=== PATIENT | female | born 1955 | race Caucasian/White ===

== ENCOUNTER 2018-07-09 16:48 | Emergency (ER) | payer OTHER, SELFPAY ==
[2018-07-09 17:18] VITALS: BP 156/82; PULSE 91; RESP 20; TEMP 36.6; O2SAT 100; BMI 26.6
--- NOTE | 2018-07-09 19:18 | ED.WOUNDLAC ---
HPI - Wound/Laceration General Chief Complaint: Wound/Laceration Stated Complaint: swelling, [employer] problem Time Seen by Provider: 07/09/18 19:18 Source: patient Mode of arrival: ambulatory Limitations: no limitations History of Present Illness HPI narrative: Patient is a 62-year-old female here for evaluation of a swelling in her rectal area for the past couple days. She states that it is extremely painful. States that it has caused her problems going to the bathroom. She has tried to look at it on her own but has been unable to. No blood in the stool. No urinary symptoms. No vaginal bleeding. She states she has had internal hemorrhoid in the past when she was that was 30 years ago. Has tried [id number] preparation H for the symptoms prior to arrival. Related Data Previous Rx's Medication Instructions Recorded lidocaine 1 applictn TOP TID PRN #45 gram 07/09/18 pramoxine [Proctofoam] 1 applictn NM TID #15 gram 07/09/18 Allergies Allergy/AdvReac Type Severity Reaction Status Date / Time cefuroxime [From Ceftin] Allergy Verified 07/09/18 17:21 clindamycin Allergy Verified 07/09/18 17:21 aspirin AdvReac Verified 07/09/18 17:23 cyclobenzaprine AdvReac Verified 07/09/18 17:22 [From Flexeril] pregabalin [From Lyrica] AdvReac Verified 07/09/18 17:22 Review of Systems Constitutional Denies fever(s) and Denies headache(s) ENT Ears, Nose, Mouth, and Throat: Denies vertigo, Denies dizziness and Denies headache(s) Cardiovascular Denies chest pain and Denies dyspnea Respiratory Denies dyspnea Gastrointestinal Gastrointestinal: Denies abdominal pain and Reports constipation Comments: Pain and swelling around her anus Genitourinary Denies dysuria Musculoskeletal Denies myalgias and Denies arthralgias Integumentary/Breasts Denies rash Neurologic Denies vertigo, Denies dizziness and Denies headache(s) Hematologic/Lymphatic Denies easy bleeding and Denies easy bruising Allergic/Immunologic Denies urticaria [facility] Medical History Healthy adult (Acute) Social History Smoking Status: Never smoker Social History Smoking Status: Never smoker Exam Initial Vital Signs Initial Vital Signs: Vital Signs Temperature 97.8 F 07/09/18 17:18 Pulse Rate 91 H 07/09/18 17:18 Respiratory Rate 20 07/09/18 17:18 Blood Pressure 156/82 H 07/09/18 17:18 Pulse Oximetry 100 07/09/18 17:18 Const General: cooperative, well developed, well groomed and No acute distress Orientation: alert, awake and oriented x3 HENMT Head: normal to inspection and normocephalic Resp Effort & Inspection: normal respiratory effort Auscultation: clear to auscultation bilaterally Cardio Rate: regular rate Rhythm: regular rhythm GI Inspection: non-distended Palpation: soft and No firm Rectal Exam: hemorrhoids and tenderness Skin Lesions: no lesions Rashes: no rashes Neuro General: alert, awake and oriented x3 Cognition: normal cognition Speech: speech normal Extrem General: normal to inspection and capillary refill normal Psych Appearance: grossly normal and well kempt Course Orders Ordered: Discontinued Medications Lidocaine HCl (Xylocaine Jelly 2%) 1 applic TOP NOW ONE Stop: 07/09/18 19:37 Vital Signs - 8 hr 07/09/18 19:47 Pulse Rate 90 Respiratory Rate 16 Blood Pressure [Left Arm] 142/86 H Pulse Oximetry 98 MDM - Wound/Laceration MDM Narrative Medical decision making narrative: Patient has a thrombosed external hemorrhoid that is easily seen on exam. We did discuss treatment. Will send home with lidocaine jelly and Proctofoam. She has Colace at home. She was given the phone number for [facility] for follow-up. She was given return precautions. She expressed understanding and agreement with plan. Discharge Plan Departure Patient Disposition: Home Clinical Impression: Hemorrhoids Qualifiers: Hemorrhoid type: unspecified Qualified Code(s): K64.9 - Unspecified hemorrhoids Discharge Date/Time: 07/09/18 19:51 Interventions: ED Discharge Assessment Last Done: 07/09/18 19:52 Instructions: Hemorrhoids (Alternative Therapy), DI for Hemorrhoids Activity Restrictions/Additional Instructions: Recommend that you use the topical treatments like we discussed. Recommend that you take the stool softener also likely discussed. Contact the [facility] at [phone]. There can be bleeding associated with this. Return to the emergency department for any new or worsening symptoms Prescriptions: New lidocaine 5 % cream 1 applictn TOP TID PRN (Reason: pain) Qty: 45 RF: 0 pramoxine [Proctofoam] 1 % foam 1 applictn NM TID Qty: 15 RF: 0
[2018-07-09 19:47] VITALS: BP 142/86; PULSE 90; RESP 16; O2SAT 98
== END 2018-07-09 19:51 | disposition home or self-care (01) ==
PROVIDERS: Emergency Provider Emergency Medicine
DX: K64.9 Unspecified hemorrhoids (principal)
CPT/HCPCS: 99282; 99283

== ENCOUNTER 2018-11-06 09:29 | Day surgery (SDC) | payer OTHER, SELFPAY ==
[2018-11-06] VITALS (7 sets, daily range): BP systolic 108–129; BP diastolic 64–77; PULSE 65–81; RESP 10–16; TEMP 36.2–37; O2SAT 99–100; BMI 26.3
[2018-11-06] MEDS: SODIUM CHLORIDE 0.9% 1,000 ML 200 ML IV (10:00)
--- NOTE | 2018-11-06 10:18 | PM.PREOP ---
Pre-operative Note Interval Note History & Physical reviewed/Exam performed by Physician: Yes Changes to H&P: No H&P completed within 30 days and has changed as indicated here:: See office note from 10/08/2018 ASA Class (for procedural sedation): II
[2018-11-06] MEDS: fentaNYL 250 MCG/5 ML INJ IV ×2 (10:52→11:01)
[2018-11-06] MEDS: MIDAZOLAM 5 MG/5 ML VIAL IV ×2 (10:53→11:03)
--- NOTE | 2018-11-06 11:22 | PM.OP.ENDO ---
Operative Date/Time/Diagnoses Date of procedure: 11/06/18 Time of procedure: 11:22 Pre-op diagnosis: Rectal bleeding. History of thrombosed hemorrhoids. Post-op diagnosis: same (Internal hemorrhoids) Procedure & Clinicians Study performed: Colonoscopy Same procedure as scheduled: Yes Indications: Rectal bleeding Surgeon: Tan Carrizales Procedure Notes SCOAP/Timeout: Performed Procedure in detail: The patient was placed in the left lateral decubitus position and underwent IV sedation directed by the surgeon consisting of fentanyl and Versed. Digital exam was unremarkable except for some minor swelling near the anus. The scope was inserted and advanced through the rectum into the sigmoid, descending, transverse, and ascending colon. I noted diverticulosis in the sigmoid colon Stiffener was inserted and pressure applied and we made our way into the cecum.. The cecum was reached identified by the ileocecal valve and the appendiceal opening. The ileocecal valve was successfully cannulated. The terminal ileum was normal in appearance. The scope was gradually brought out. No Polyps were found. The scope ultimately was retroflexed in the rectum. The appearance was remarkable for rather large internal hemorrhoids without ulceration.. The scope was removed and the patient tolerated the procedure well. Prep was very good. Findings: diverticulosis (Sigmoid) Specimen(s): none sent Complications: none Recommendations: Colonscopy in 10 years Follow up: as needed Disposition: PACU
--- NOTE | 2018-11-06 12:26 | DI.RAD.S_ITS ---
PROCEDURE: XR ACUTE ABDOMEN SERIES INDICATIONS: pain post colonoscopy TECHNIQUE: One view chest and two views of the abdomen were acquired. COMPARISON: None. FINDINGS: Surgical changes and devices: None. Chest: Lungs are clear. Heart size is normal. No pleural effusions. No pneumoperitoneum. Abdomen: Bowel gas pattern is normal. No suspicious calcifications. Visualized solid organ contours appear normal. Bones: No suspicious bony lesions. IMPRESSION: No gross free air. No acute cardio pulmonary pathology. Dictated by: Torsten Ferguson M.D. on 11/06/2018 at 13:26 Approved by: Torsten Ferguson M.D. on 11/06/2018 at 13:27
--- NOTE | 2018-11-06 12:56 | SUR.PHASEII ---
Pt lying on lt side. Reported having dyspnea, o2 sat 99% ra. Exp rhonchi to rt upper lobe, otherwise lungs clear. O2 monitor in place. Call light within reach.
--- NOTE | 2018-11-06 14:13 | SUR.PHASEII ---
Late entry: Assumed care from Eliseo. Pt c/o of L sided abdominal pain. Pt has soft belly with + bowel tones, no nausea. Pt assisted to L side and instructed her expel gas if needed. was brought in and d/c instructions discussed. All voiced an understanding. Pt did not get any better and still said the pain was there and it got worse as she took a deep breath. Dr. Carrizales called, xray ordered, xray performed read by Dr. Carrizales. Pt was given food from 's instructions and able to leave after that. Pt also admitted to passing some gas by mouth. Pt left when ready and left in stable condition.
== END 2018-11-06 13:00 | disposition home or self-care (01) ==
LOC: ENDO 09:31
PROVIDERS: PCP Internal Medicine; Visit Provider Specialist
PROC: 0DJD8ZZ Inspection of Lower Intestinal Tract, Via Natural or Artificial Opening Endoscopic (ICD-10-PCS; CPT 45378; principal; 2018-11-06 10:45)
DX: K62.5 Hemorrhage of anus and rectum (principal); K64.8 Other hemorrhoids; K57.30 Diverticulosis of large intestine without perforation or abscess without bleeding
CPT/HCPCS: 45378; 74022; J2250; J3010

== ENCOUNTER 2018-11-09 16:18 | Emergency (ER) | payer OTHER, SELFPAY ==
[2018-11-09 16:25] VITALS: BP 148/86; PULSE 87; RESP 15; TEMP 36.4; O2SAT 100; BMI 25.8
--- NOTE | 2018-11-09 16:36 | ED.ABDPAIN ---
HPI - Abdominal Pain General Chief Complaint: Abdominal Pain Stated Complaint: pain lower left abdomen Time Seen by Provider: 11/09/18 16:30 Source: patient Mode of arrival: ambulatory Limitations: no limitations History of Present Illness HPI narrative: Patient is a 62-year-old female who presents with left lower quadrant pain. She had a colonoscopy for hemorrhoids on 11/06/2018. She did immediately after the procedure she had this left lower quadrant pain. She says it has not moved has not gone away in fact her pain has progressively worsened. She had a postprocedure x-ray which she said was negative. She has not been able to get comfortable she denies any fever no nausea or vomiting. MD complaint: abdominal pain Pain Consistency: constant Radiation: LLQ Migration to: no migration Relieving factors: nothing Exacerbating factors: nothing Related Data Home Medications Medication Instructions Recorded Confirmed bupropion HCl XL 150 mg 24 hr 150 mg PO QAM 10/08/18 11/09/18 tablet, extended release epinephrine 0.3 mg/0.3 mL 0.3 ml IM ONCE PRN 10/08/18 11/09/18 injection, auto-injector estradiol 2 mg tablet 2 mg PO DAILY 10/08/18 11/09/18 fluorometholone 0.1 % eye See Rx Instructions .ROUTE 10/08/18 11/09/18 drops,suspension .COMPLEX ml fluticasone propionate-salmeterol 2 puff INHALATION BID 10/08/18 11/09/18 230 mcg-21 mcg/actuation HFA inhaler pravastatin 20 mg tablet 20 mg PO DAILY 10/08/18 11/09/18 zafirlukast 20 mg tablet 20 mg PO Q12H 10/08/18 11/09/18 albuterol sulfate [ProAir HFA] 1 puff INHALATION DAILY 11/09/18 11/09/18 buspirone 10 mg PO QPM 11/09/18 11/09/18 buspirone 20 mg PO QAM 11/09/18 11/09/18 carboxymethylcellulose sodium 1 drp OPHTHALMIC (EYE) PRN PRN 11/09/18 11/09/18 [Refresh Tears] clobetasol 1 applic TOPICAL BID 11/09/18 11/09/18 cyclosporine [Restasis] 1 drp OPHTHALMIC (EYE) DIRECTED 11/09/18 11/09/18 levothyroxine [Synthroid] 150 mcg PO DAILY 11/09/18 11/09/18 ondansetron 8 mg PO PRN PRN 11/09/18 11/09/18 rizatriptan [Maxalt] 10 mg PO PRN PRN 11/09/18 11/09/18 sertraline 50 mg PO DAILY 11/09/18 11/09/18 sertraline 100 mg PO DAILY 11/09/18 11/09/18 tizanidine 4 mg PO QPM 11/09/18 11/09/18 tramadol 50 mg PO DAILY PRN 11/09/18 11/09/18 trazodone 100 mg PO QPM 11/09/18 11/09/18 Previous Rx's Medication Instructions Recorded ciprofloxacin HCl [Cipro] 500 mg PO BID #14 tab 11/09/18 fluconazole 200 mg PO DAILY #1 tab 11/09/18 hydrocodone-acetaminophen [[place]] 1 tab PO Q6H PRN #10 tab 11/09/18 metronidazole [Flagyl] 500 mg PO TID #21 tab 11/09/18 Allergies Allergy/AdvReac Type Severity Reaction Status Date / Time fluoxetine [From Prozac] Allergy Unknown Verified 11/06/18 10:01 topiramate [From Topamax] Allergy Unknown Verified 11/06/18 10:01 cefuroxime [From Ceftin] Allergy Verified 11/06/18 10:01 clindamycin Allergy Verified 11/06/18 10:01 aspirin AdvReac Verified 11/06/18 10:01 cyclobenzaprine AdvReac Verified 11/06/18 10:01 [From Flexeril] pregabalin [From Lyrica] AdvReac Verified 11/06/18 10:01 Review of Systems Review of Systems GENERAL: Denies chills, fatigue, malaise, fever, sweats, travel HEENT: Denies sinus pain, ear pain, sore throat, difficulty swallowing, neck pain RESPIRATORY: Denies dyspnea, cough, wheezing, hemoptysis, sputum. CARDIOVASCULAR: Denies chest pain, palpitations, orthopnea, edema GASTROINTESTINAL: See HPI : Denies dysuria, frequency, incontinence, hematuria, urinary retention, flank pain. MUSCULOSKELETAL: Denies weakness, joint pain, or bony pain SKIN: No rash, no erythema, no pruritus NEUROLOGIC: Denies weakness, dizziness, headache, numbness, change in speech, confusion PSYCHIATRIC: No concerning psychosocial issues. 12 point review of systems is negative except for those stated above and HPI [facility] Medical History Healthy adult (Acute) Anxiety (Chronic) Asthma (Chronic) Chronic migraine (Chronic) Depression (Chronic) Fibromyalgia (Chronic) Hypothyroidism (Chronic) Surgical History Status post hysterectomy (Resolved) Social History household members: spouse Smoking Status: Never smoker Social History household members: spouse Smoking Status: Never smoker Exam Initial Vital Signs Initial Vital Signs: Vital Signs Temperature 97.6 F 11/09/18 16:25 Pulse Rate 87 11/09/18 16:25 Respiratory Rate 15 11/09/18 16:25 Blood Pressure 148/86 H 11/09/18 16:25 Pulse Oximetry 100 11/09/18 16:25 GENERAL: Well-appearing, well-nourished and in no acute distress. HEENT: Head atraumatic,EOMI, pupils reactive, face symmetric CARDIOVASCULAR: Regular rate and rhythm without murmurs, rubs or gallops. RESPIRATORY: Breath sounds equal bilaterally, no wheezes rales or rhonchi. ABDOMEN: Soft, left low lower quadrant pain no guarding no rebound s EXTREMITIES: Normal range of motion, no clubbing or edema. Neurovascularly intact NEUROLOGICAL: Alert and oriented x4.Normal gait and speech. Cranial nerves II through XII grossly intact. SKIN: Warm, dry, no laceration, no petechiae, no rashes or lesions. Course Orders Ordered: Discontinued Medications Hydromorphone HCl (Dilaudid) 0.5 mg IV NOW ONE Stop: 11/09/18 16:44 Last Admin: 11/09/18 16:54 Dose: 0.5 mg Hydromorphone HCl (Dilaudid) 0.5 mg IV NOW ONE Stop: 11/09/18 17:38 Last Admin: 11/09/18 17:38 Dose: 0.5 mg Hydromorphone HCl (Dilaudid) 0.5 mg IV NOW ONE Stop: 11/09/18 18:17 Last Admin: 11/09/18 18:19 Dose: 0.5 mg Sodium Chloride (Normal Saline 0.9%) 1,000 mls @ 150 mls/hr IV CONT PER Last Admin: 11/09/18 16:54 Dose: 150 mls/hr Levofloxacin (Levaquin) 750 mg PO NOW ONE Stop: 11/09/18 18:39 Last Admin: 11/09/18 18:43 Dose: 750 mg Metronidazole (Metronidazole) 500 mg PO NOW ONE Stop: 11/09/18 18:39 Last Admin: 11/09/18 18:43 Dose: 500 mg Consultations Consultation #1: Dr. Carrizales, surgery has been updated patient's symptoms and test results. He did her colonoscopy which he said was not a complete colonoscopy due to a poor prep. Recommends antibiotics pain medication and follow up outpatient. Time: 18:09 Vital Signs - 8 hr 11/09/18 16:25 Temperature 97.6 F Pulse Rate 87 Respiratory Rate 15 Blood Pressure 148/86 H Pulse Oximetry 100 MDM - Abdominal Pain Lab Data Attestation: I reviewed the patient's lab results. Result diagrams: 11/09/18 16:35 11/09/18 16:35 Lab Results 11/09/18 11/09/18 11/09/18 Range/Units 16:35 16:35 16:35 WBC 6.8 (4.5-11.0) X10^3/uL RBC 4.83 (4.0-5.2) X10^6/uL Hgb 13.5 (12.0-16.0) g/dL Hct 40.8 (36-46) % MCV 84.5 (80-100) fL MCH 28.0 (26-34) PG MCHC 33.1 (30-36) % RDW 12.7 (11.6-14.8) % Plt Count 247 (150-400) X10^3/uL Neut % (Auto) 55.7 (50-75) % Lymph % (Auto) 34.7 (25-40) % [place] % (Auto) 7.8 (3-14) % Eos % (Auto) 1.6 L (2-4) % Baso % (Auto) 0.2 (0-2) % Neut # (Auto) 3800 (0450-7971) /uL Lymph # (Auto) 2400 (3530-6563) /uL [place] # (Auto) 500 (0-900) /uL Eos # (Auto) 100 (0-450) /uL Baso # (Auto) 0 (0-100) /uL PT 11.0 (10.1-12.7) SECONDS INR 1.0 (0.9-1.3) APTT 31 (26.4-36.2) SECONDS Sodium 142 (137-145) mmol/L Potassium 3.9 (3.4-5.1) mmol/L Chloride 101 (98-107) mmol/L Carbon Dioxide 29 (22-32) mmol/L BUN 17 (7-17) mg/dL Creatinine 0.70 (0.52-1.04) mg/dL Estimated GFR > 60.0 (>60) mL/min BUN/Creatinine Ratio 24.3 H (6-22) Glucose 90 (80-110) mg/dL Calcium 9.8 (8.4-10.2) mg/dL Total Bilirubin 0.4 (0.2-1.3) mg/dL AST 36 (14-36) IU/L ALT 24 (9-52) IU/L Alkaline Phosphatase 91 (38-126) U/L Total Protein 8.2 (6.3-8.2) g/dL Albumin 4.7 (3.5-5.0) g/dL Globulin 3.5 (1.7-4.1) g/dL Albumin/Globulin Ratio 1.3 (1.0-2.8) Lipase 85 (23-300) U/L Point of care testing: Urine Dip Bedside Urine Glucose Negative Bedside Urine Bilirubin - Negative Bedside Urine Ketone - Negative Urine Specific [place] 1.025 Bedside Urine Occult Blood - Negative Bedside Urine pH 5.5 Bedside Urine Protein - Negative Bedside Urine Urobilinogen - Negative Bedside Urine Nitrite - Negative Bedside Urine Leukocytes - Negative Esterase Imaging Data CT scan - abdomen: Radiologist's impression: PROCEDURE: CT ABDOMEN PELVIS W CON INDICATIONS: Left sided pain after colonoscopy TECHNIQUE: After the administration of intravenous contrast, 5 mm thick sections acquired from the diaphragm to the symphysis. 5 mm coronal and sagittal reformats were acquired. For radiation dose reduction, the following was used: automated exposure control, adjustment of mA and/or kV according to patient size. COMPARISON: [facility], CR, XR ACUTE ABDOMEN SERIES, 11/06/2018, 12:37. FINDINGS: Image quality: Excellent. ABDOMEN: Lung bases: There is mild dependent atelectasis bilaterally. Heart size is normal. Solid organs: There is hypoattenuation of the liver compatible with fatty infiltration. The gallbladder appears within normal limits without calcified gallstones. Biliary system is non-dilated. There is intermediate density within the distal common bile duct without calcified stones or abnormal dilatation. Pancreas enhances normally. No peripancreatic fat stranding or fluid collections. No pancreatic duct dilatation. The spleen is normal in size without a discrete splenic laceration. No adrenal nodules. Kidneys demonstrate no hydronephrosis. Peritoneum and bowel: Bowel loops demonstrate normal wall thickness and caliber. There is colonic diverticulosis without acute diverticulitis. No free air. There is minimal free fluid in the left paracolic gutter extending to the inferior margin of the spleen. Nodes and vessels: No retroperitoneal or mesenteric adenopathy by size criteria. Aorta and inferior vena cava are normal in size. Miscellaneous: No ventral hernias. PELVIS: Genitourinary: The uterus is surgically absent. Bladder wall thickness is normal. Miscellaneous: No inguinal hernias or adenopathy. Bones: No suspicious bony lesions. No vertebral body compression fractures. IMPRESSION: 1. Minimal free fluid in the left paracolic gutter extending to the inferior margin of the spleen without evidence of free air. The finding is nonspecific and may reflect reactive fluid. A microscopic perforation cannot be fully excluded but is considered less likely in the absence of pneumoperitoneum. No evidence of splenic lacerations. 2. No evidence of bowel obstruction. There is colonic diverticulosis without acute diverticulitis. Dictated by: Kenny Sun M.D. on 11/09/2018 at 17:49 ECG Data Attestation: I personally reviewed and interpreted this ECG as follows: Prior ECG tracings: not available for review Interpretation: Sinus rhythm rate [address] changes to inversions no priors to compare MDM Narrative Medical decision making narrative: Patient's pain is better after Dilaudid. She has no leukocytosis. She does have some fluid noted on CT but no evidence of perforation. At this time will give antibiotics as surgery requested and pain medication. She will follow up with surgery next week as planned. I discussed all findings with the patient, Education has been performed regarding treatment plan, diagnosis, warning signs and symptoms and all concerns have been addressed. Verbally agree with and understood all of the above. Discharge Plan Departure Patient Disposition: Home Clinical Impression: Colitis Discharge Date/Time: 11/09/18 19:01 Interventions: ED Discharge Assessment Last Done: 11/09/18 19:00 Instructions: DI for Colitis Activity Restrictions/Additional Instructions: *You have been diagnosed with colitis *What to do: Blood work is reassuring today. However CT scan does show some fluid inflammation in the area where experiencing pain. *Continue to take medications as directed Cipro 500 mg twice a day Flagyl 500 mg 3 times a day for 1 week [place] 1 tablet every 6 hours if needed for severe pain *Follow up with your primary care provider in 2-3 days *Return to ER if you should have increasing pain persistent vomiting fevers or any new, worsening or concerning symptoms CONTROLLED SUBSTANCE DISCHARGE (Narcotoic/benzodiazepine/Flexeril/Phenergan) 1. You have been prescribed narcotic medications, it does have acetaminophen/Tylenol/paracetamol in it so do not take extra Tylenol or Tylenol containing products 2. Please understand that we cannot provide further refills of narcotics, benzodiazepines or controlled substances through the ED and her pain management will need to be through your provider. 3. While on these medications you cannot drive or operate heavy machinery. 4. You cannot sign legal documents or perform any duties such as this. 5. As long as you're taking opiate pain medications he should also be taking a stool softener such as Colace, Dulcolax, MiraLAX or prune juice, to help avoid constipation. Prescriptions: New hydrocodone-acetaminophen [[place]] 5-325 mg tablet 1 tab PO Q6H PRN (Reason: pain) Qty: 10 RF: 0 metronidazole [Flagyl] 500 mg tablet 500 mg PO TID Qty: 21 RF: 0 ciprofloxacin HCl [Cipro] 500 mg tablet 500 mg PO BID Qty: 14 RF: 0 fluconazole 200 mg tablet 200 mg PO DAILY Qty: 1 RF: 0 No Action Advair HFA 230-21 mcg/actuation HFA aerosol inhaler 2 puff INHALATION BID RF: 0 zafirlukast 20 mg tablet 20 mg PO Q12H RF: 0 epinephrine [EpiPen] 0.3 mg/0.3 mL auto-injector 0.3 ml IM ONCE PRN (Reason: anaphylaxis) RF: 0 fluorometholone 0.1 % drops,suspension See Rx Instructions .ROUTE .COMPLEX RF: 0 bupropion HCl 150 mg tablet extended release 24 hr 150 mg PO QAM RF: 0 pravastatin 20 mg tablet 20 mg PO DAILY RF: 0 estradiol 2 mg tablet 2 mg PO DAILY RF: 0 buspirone 10 mg tablet 20 mg PO QAM RF: 0 rizatriptan [Maxalt] 10 mg tablet 10 mg PO PRN PRN (Reason: Migraine Headache) RF: 0 clobetasol 0.05 % ointment 1 applic topical BID RF: 0 tizanidine 2 mg tablet 4 mg PO QPM RF: 0 sertraline 100 mg tablet 100 mg PO DAILY RF: 0 tramadol 50 mg tablet 50 mg PO DAILY PRN (Reason: Pain, Severe) RF: 0 ondansetron 8 mg tablet,disintegrating 8 mg PO PRN PRN (Reason: Nausea) RF: 0 trazodone 100 mg tablet 100 mg PO QPM RF: 0 Refresh Tears 0.5 % drops 1 drp ophthalmic (eye) PRN PRN (Reason: Dry Eyes) RF: 0 levothyroxine [Synthroid] 150 mcg tablet 150 mcg PO DAILY RF: 0 albuterol sulfate [ProAir HFA] 90 mcg/actuation HFA aerosol inhaler 1 puff inhalation DAILY RF: 0 sertraline 50 mg tablet 50 mg PO DAILY RF: 0 buspirone 10 mg tablet 10 mg PO QPM RF: 0 Restasis 0.05 % [place] 1 drp ophthalmic (eye) DIRECTED RF: 0 Referrals: Selena Melendez MD [Primary Care Provider] -
--- NOTE | 2018-11-09 16:43 | DI.CT.S_ITS ---
PROCEDURE: CT ABDOMEN PELVIS W CON INDICATIONS: Left sided pain after colonoscopy TECHNIQUE: After the administration of intravenous contrast, 5 mm thick sections acquired from the diaphragm to the symphysis. 5 mm coronal and sagittal reformats were acquired. For radiation dose reduction, the following was used: automated exposure control, adjustment of mA and/or kV according to patient size. COMPARISON: [facility], CR, XR ACUTE ABDOMEN SERIES, 11/06/2018, 12:37. FINDINGS: Image quality: Excellent. ABDOMEN: Lung bases: There is mild dependent atelectasis bilaterally. Heart size is normal. Solid organs: There is hypoattenuation of the liver compatible with fatty infiltration. The gallbladder appears within normal limits without calcified gallstones. Biliary system is non-dilated. There is intermediate density within the distal common bile duct without calcified stones or abnormal dilatation. Pancreas enhances normally. No peripancreatic fat stranding or fluid collections. No pancreatic duct dilatation. The spleen is normal in size without a discrete splenic laceration. No adrenal nodules. Kidneys demonstrate no hydronephrosis. Peritoneum and bowel: Bowel loops demonstrate normal wall thickness and caliber. There is colonic diverticulosis without acute diverticulitis. No free air. There is minimal free fluid in the left paracolic gutter extending to the inferior margin of the spleen. Nodes and vessels: No retroperitoneal or mesenteric adenopathy by size criteria. Aorta and inferior vena cava are normal in size. Miscellaneous: No ventral hernias. PELVIS: Genitourinary: The uterus is surgically absent. Bladder wall thickness is normal. Miscellaneous: No inguinal hernias or adenopathy. Bones: No suspicious bony lesions. No vertebral body compression fractures. IMPRESSION: 1. Minimal free fluid in the left paracolic gutter extending to the inferior margin of the spleen without evidence of free air. The finding is nonspecific and may reflect reactive fluid. A microscopic perforation cannot be fully excluded but is considered less likely in the absence of pneumoperitoneum. No evidence of splenic lacerations. 2. No evidence of bowel obstruction. There is colonic diverticulosis without acute diverticulitis. Dictated by: Kenny Sun M.D. on 11/09/2018 at 17:49 Approved by: Kenny Sun M.D. on 11/09/2018 at 17:55
[2018-11-09 16:50] LABS: Add Manual Diff / Slide Review NO; Basophils Absolute Auto 0 /uL (0-100); Basophils Percent Auto 0.2 % (0-2); Eosinophils Absolute Auto 100 /uL (0-450); Eosinophils Percent Auto 1.6 % (2-4); Hematocrit 40.8 % (36-46); Hemoglobin 13.5 g/dL (12.0-16.0); Lymphocytes Absolute Auto 2400 /uL (1100-4500); Lymphocytes Percent Auto 34.7 % (25-40); Mean Corpuscular HGB Conc 33.1 % (30-36); Mean Corpuscular Volume 84.5 fL (80-100); Monocytes Absolute Auto 500 /uL (0-900); Monocytes Percent Auto 7.8 % (3-14); Neutrophils Absolute Auto 3800 /uL (1500-7000); Neutrophils Percent Auto 55.7 % (50-75); Platelet Count 247 X10^3/uL (150-400); Red Blood Cell Count 4.83 X10^6/uL (4.0-5.2); Red Cell Distribution Width 12.7 % (11.6-14.8); White Blood Cell Count 6.8 X10^3/uL (4.5-11.0)
[2018-11-09] MEDS: SODIUM CHLORIDE 0.9% 1,000 ML 150 ML IV (16:54)
[2018-11-09] MEDS: HYDROMORPHONE 1 MG INJ 0.5 MG IV ×3 (16:54→18:19)
[2018-11-09 16:55] LABS: PTT Partial Thromboplastin Tim 31 SECONDS (26.4-36.2)
[2018-11-09 16:56] LABS: Alanine Aminotransferase 24 IU/L (9-52); Albumin 4.7 g/dL (3.5-5.0); Albumin Globulin Ratio 1.3 (1.0-2.8); Alkaline Phosphatase 91 U/L (38-126); Aspartate Aminotransferase 36 IU/L (14-36); BUN Creatinine Ratio 24.3 (6-22); Bilirubin Total 0.4 mg/dL (0.2-1.3); Blood Urea Nitrogen 17 mg/dL (7-17); Calcium 9.8 mg/dL (8.4-10.2); Carbon Dioxide 29 mmol/L (22-32); Chloride 101 mmol/L (98-107); Estimated Glomerular Filt Rate > 60.0 mL/min (>60); Globulin 3.5 g/dL (1.7-4.1); Glucose 90 mg/dL (80-110); HEMOLYSIS < 15 (0-50); Lipase 85 U/L (23-300); Potassium 3.9 mmol/L (3.4-5.1); Sodium 142 mmol/L (137-145); Total Protein 8.2 g/dL (6.3-8.2)
[2018-11-09 18:25] VITALS: BP 124/58; PULSE 65; O2SAT 98
[2018-11-09] MEDS: metroNIDAZOLE 250 MG TABLET 500 MG PO (18:43)
[2018-11-09] MEDS: levoFLOXacin 250 MG TABLET 750 MG PO (18:43)
[2018-11-09 19:00] VITALS: BP 135/68; PULSE 68; RESP 19; O2SAT 99
--- NOTE | 2018-12-02 08:01 | PC.NURSE ---
NS IV Fluids @150cc/hr ran from 1645 to 1845 at DC for 300cc fluids in
== END 2018-11-09 19:01 | disposition home or self-care (01) ==
PROVIDERS: Emergency Provider Emergency Medicine; PCP Internal Medicine
DX: K52.9 Noninfective gastroenteritis and colitis, unspecified (principal)
CPT/HCPCS: 36591; 74177; 80053; 81003; 83690; 85025; 85610; 85730; 93005; 96374; 96376; 99282; 99285; J1170; Q9967

== ENCOUNTER 2018-11-10 23:50 | Inpatient (IN) | payer OTHER, SELFPAY ==
[2018-11-11 01:10] VITALS: BMI 25.9
[2018-11-11 01:23] VITALS: BP 125/79; PULSE 72; RESP 16; TEMP 36.8; O2SAT 98
[2018-11-11] MEDS: SODIUM CHLORIDE 0.9% 1,000 ML 75 ML IV (01:30)
[2018-11-11] MEDS: BUSPIRONE 5 MG TABLET 10 MG PO ×3 (02:01→21:23)
[2018-11-11] MEDS: HYDROMORPHONE 0.5 MG INJ IV ×4 (02:03→21:35)
--- NOTE | 2018-11-11 03:01 | PC.ADMIT ---
Addendum entered by Zohra Hidalgo R.N. 11/11/18 06:23: Up to bathroom with SBA. States pain in left quads of abdomen now at 6/10; medicated with Dilaudid per MARIBELL Schultz. Original Note: Patient admitted to room 213 as direct admit from [facility] at 0110. Report was that she had received 1mg IV Dilaudid at 0030 and now reporting pain is 6/10 in LUQ and tender in both left upper/lower quadrants exacerbated with deep breathing, coughing or any movement. Denies nausea. Dr Marrero informed of arrival and new orders received. Patient is alert and oriented. Reports LUQ pain x 4d following colonoscopy. Was seen at [place] ER on Monday where CT was negative but reportedly CT done at [facility] showing splenic hematoma. Breath sounds CTA with RA sat of 98%. HRR and VSS. BT present and abdomen soft although tender on left with palpation; reports 3 watery stools on Monday. No stools since Monday but has been passing flatus. Has not eaten much due to discomfort but denies nausea/emesis. Denies dysuria, frequency, urgency or incontinence. Able to move self in bed. Medicated with IV Dilaudid after pharmacy verification and currently states pain is tolerable at 3/10. SCD's are currently on. Patient was oriented to bed controls and call light controls. Instructed on NPO status although may have ice chips and sips with meds. Fall risk score is low but patient instructed to call for assistance when getting out of bed due to IVF infusing; verbalizes understanding. [address] Admission Note: The patient,Romeo Negrete,62 y/o, was given written information regarding hospital policies, unit procedures and contact persons. Patient's smoking status: Former smoker. Vital Signs - 8 hr 11/11/18 01:23 Temperature 98.2 F Pulse Rate 72 Respiratory Rate 16 Blood Pressure 125/79 Pulse Oximetry 98
[2018-11-11 03:36] VITALS: BP 122/72; PULSE 58; RESP 16; O2SAT 100
--- NOTE | 2018-11-11 08:19 | PC.NURSE ---
Day shift: Pt wants SCD's off at this time so she can sleep. Reminded Pt SCd's keep clots away. Call light in reach. Pt stated that the SCD's keep her from being able to sleep.
--- NOTE | 2018-11-11 08:27 | CM.DANOTE ---
Addendum entered by Debra Johnson LPN 11/11/18 14:23: Met with pt as planned and introduced self and role. Pt was found lying in bed, looking uncomfortable, HEADING MATCHER AND ASSEMBLER giving assistance. Pt confirms that she had the colonoscopy at 11/[address] Carrizales doing the procedure. She did go to ER in followup and then yesterday to [facility] ER. She was sent directly to for admission as procedure was done here. She is aware that DCPlanning team will follow to assist with any d/c needs that may arise. Dr. Marrero's H&P is now available. Plan is for monitoring of the encapsulated splenic hematoma, discovered at [facility] via CT and for pain control. UR MARIBELL Wheeler states that admission status is confirmed as OBS. Original Note: Discharge Planning/Care Management DCP: assessment: initiated. Case received, EMR reviewed. No physician reports are available in EMR at this time but note from night guardnight clerk auditor indicates that pt was a direct admission last night from [facility]: admit time noted on Face Sheet as 0. Admitted to [facility] clinic: Dr. Marrero Payer: Evan Feng PCP: unknown at this time. Pt is a 62 year old female who lives with her in [place]. Documentation states that Raghu Negrete is her POA. [phone]. Went to room to check in with pt and introduce self and role. Sign on door stated Do Not Disturb. MARIBELL Carreon confirmed that pt had rquested that she be left to sleep. Pt and care team waiting for Dr. Marrero and clarity re the POC. P: see pt when able to continue the dc planning assessment process. Discuss in Team Rounds with RN brigette Cruz. Advanced directive, confirm from FAMILY Start: 11/11/18 01:56 Freq: 1300 Status: Active Protocol: Document 11/11/18 01:30 AMH (Rec: 11/11/18 02:58 AMH [id number]) Advance Directive, confirm on record Time 01:30 Person contacted Raghu Serrano received No CM Discharge Assessment Start: 11/11/18 08:25 Freq: Status: Active Protocol: Document 11/11/18 08:26 ITV (Rec: 11/11/18 08:27 ITV [id number]) Discharge Planning Assessment Advance Directives? Yes Advance Directives on File No History Provided By Medical Record Prior Living Arrangements House Household Members spouse Review Status In Process
[2018-11-11] MEDS: BUSPIRONE 15 MG TABLET PO (09:28)
--- NOTE | 2018-11-11 09:55 | P.HP_ITS ---
History of Present Illness Date Patient Seen: 11/11/18 Time Patient Seen: 09:00 Chief complaint: Left side abdominal PX Narrative: 62yo F s/p colonoscopy on 11/06, says she has had LUQ pain since that time. Had an XR in PACU which was normal. Pain persisted, no n/v but not much appetite. Pt has gone to our ED two days ago with a CT showing likely reactive fluid along the left paracolic gutter extending to spleen with no splenic injury nor inflammation of colon. She was prescribed abx in case of a mild colitis or microperforation but this was denied by her insurance initially. She ended up in [facility] ED yesterday and their CT shows no free fluid but an encapsulated splenic hematoma was noted. Her Hg is normal and vitals normal. We accepted in transfer for pain control and monitoring. Doing well this morning, still sore but improving and vitals unremarkable. Patient History Medical History Healthy adult (Acute) Anxiety (Chronic) Asthma (Chronic) Chronic migraine (Chronic) Depression (Chronic) Fibromyalgia (Chronic) Hypothyroidism (Chronic) Surgical History Status post hysterectomy (Resolved) Social History household members: spouse Smoking Status: Former smoker alcohol intake: current Family & Social History Social History: household members spouse Prior Living Arrangements House Safety & Behavioral: Feels Safe in Current Yes Environment Been Physically Hurt or No Threatened By a Person Suicidal Ideation Description None Tobacco & Substance use: Tobacco type cigarettes Smoking Status Former smoker alcohol intake current alcohol intake frequency holiday/special occasion Substance Use Type does not use Meds Home Medications Medication Instructions Recorded Confirmed Type bupropion HCl XL 150 mg 24 hr 150 mg PO QAM 10/08/18 11/11/18 History tablet, extended release epinephrine 0.3 mg/0.3 mL 0.3 ml IM ONCE PRN 10/08/18 11/11/18 History injection, auto-injector estradiol 2 mg tablet 2 mg PO DAILY 10/08/18 11/11/18 History fluorometholone 0.1 % eye See Rx Instructions .ROUTE 10/08/18 11/11/18 History drops,suspension .COMPLEX PRN ml fluticasone propionate-salmeterol 2 puff INHALATION BID 10/08/18 11/11/18 History 230 mcg-21 mcg/actuation HFA inhaler pravastatin 20 mg tablet 20 mg PO DAILY 10/08/18 11/11/18 History zafirlukast 20 mg tablet 20 mg PO Q12H 10/08/18 11/11/18 History albuterol sulfate [ProAir HFA] 1 puff INHALATION BID-TID 11/09/18 11/11/18 History buspirone 10 mg PO BID 11/09/18 11/11/18 History clobetasol 1 applic TOPICAL BID 11/09/18 11/11/18 History cyclosporine [Restasis] 1 drp OPHTHALMIC (EYE) BID 11/09/18 11/11/18 History levothyroxine [Synthroid] 150 mcg PO QPM 11/09/18 11/11/18 History ondansetron 8 mg PO BID PRN 11/09/18 11/11/18 History rizatriptan [Maxalt] 10 mg PO PRN PRN 11/09/18 11/11/18 History sertraline 150 mg PO DAILY 11/09/18 11/11/18 History tizanidine 4 mg PO QPM 11/09/18 11/11/18 History tramadol 50 - 100 mg PO TID PRN 11/09/18 11/11/18 History trazodone 100 mg PO QPM 11/09/18 11/11/18 History ascorbic acid (vitamin C) 500 mg PO DAILY 11/11/18 11/11/18 History beta carotene 25,000 unit PO QPM 11/11/18 11/11/18 History flaxseed oil 1,200 mg PO BID 11/11/18 11/11/18 History melatonin 5 mg PO BEDTIME 11/11/18 11/11/18 History ynbzjzjl-ucf-II-lycopen-lutein 1 tab PO DAILY 11/11/18 11/11/18 History [Century Mature] vitamin E 400 unit PO BID 11/11/18 11/11/18 History Allergies Allergy/AdvReac Type Severity Reaction Status Date / Time fluoxetine [From Prozac] Allergy Unknown Verified 11/06/18 10:01 topiramate [From Topamax] Allergy Unknown Verified 11/06/18 10:01 cefuroxime [From Ceftin] Allergy Verified 11/06/18 10:01 clindamycin Allergy Verified 11/06/18 10:01 aspirin AdvReac Verified 11/06/18 10:01 cyclobenzaprine AdvReac Verified 11/06/18 10:01 [From Flexeril] pregabalin [From Lyrica] AdvReac Verified 11/06/18 10:01 Review of Systems Constitutional Constitutional: Reports as per HPI Exam Vital Signs (past 8 hours): - 11/11/18 03:36 Pulse Rate 58 L Respiratory Rate 16 Blood Pressure 122/72 Pulse Oximetry 100 Oxygen Delivery Method Room Air Oxygen Flow Rate 0 Narrative Exam Narrative: AAO, NAD, female of healthy weight EOMI, MMM, no scleral icterus unlabored RA soft, nd, moderate ttp LUQ and left abd MAEW visible skin dry and intact Assessment & Plan (1) Postprocedural hematoma of the spleen following other procedure: Current visit: Yes Status: Acute Assessment & Plan narrative: - vitals and Hg normal thus far --> monitor, check labs later today - to CLD - restart home meds - ambulate - discussed with pt unlikely this will open and drain but odd course and worth monitoring, also needs pain control - prn dilaudid and move to PO when malcolm more diet Quality VTE Deep Vein Thrombosis/Pulmonary Embolism Present on Admission: No
[2018-11-11 10:00] VITALS: BP 116/67; PULSE 64; RESP 16; TEMP 36.5; O2SAT 98
[2018-11-11 10:46] LABS: Add Manual Diff / Slide Review NO; Basophils Absolute Auto 0 /uL (0-100); Basophils Percent Auto 0.3 % (0-2); Eosinophils Absolute Auto 100 /uL (0-450); Eosinophils Percent Auto 2.9 % (2-4); Hematocrit 35.4 % (36-46); Hemoglobin 11.7 g/dL (12.0-16.0); Lymphocytes Absolute Auto 1700 /uL (1100-4500); Lymphocytes Percent Auto 33.3 % (25-40); Mean Corpuscular HGB Conc 33.1 % (30-36); Mean Corpuscular Hemoglobin 27.9 PG (26-34); Mean Corpuscular Volume 84.5 fL (80-100); Monocytes Absolute Auto 400 /uL (0-900); Monocytes Percent Auto 7.4 % (3-14); Neutrophils Absolute Auto 2800 /uL (1500-7000); Neutrophils Percent Auto 56.1 % (50-75); Platelet Count 206 X10^3/uL (150-400); Red Cell Distribution Width 12.4 % (11.6-14.8)
[2018-11-11] MEDS: CLOBETASOL 0.05% OINTMENT 15 GM 1 APPLIC TOP ×2 (10:58→21:24)
[2018-11-11] MEDS: ZAFIRLUKAST 20 MG TABLET PO (10:58)
[2018-11-11] MEDS: SERTRALINE 50 MG TABLET 150 MG PO (10:58)
[2018-11-11] MEDS: buPROPion XL 150 MG TAB PO (10:58)
[2018-11-11] MEDS: OXYCODONE IR 5 MG TABLET PO ×3 (14:39→21:23)
[2018-11-11 16:00] VITALS: BP 124/75; PULSE 67; RESP 20; TEMP 36.5; O2SAT 97
[2018-11-11] MEDS: LEVOTHYROXINE 150 MCG TABLET PO (16:50)
[2018-11-11] MEDS: TIZANIDINE 4 MG TABLET PO (16:50)
[2018-11-11] MEDS: PRAVASTATIN 20 MG TABLET PO (21:23)
[2018-11-11] MEDS: MELATONIN 3 MG TABLET 6 MG PO (21:23)
[2018-11-11] MEDS: CYCLOSPORINE 1 EACH EYE-BOTH (21:24)
[2018-11-11] MEDS: VITAMIN E 400 UNIT CAPSULE PO (21:24)
[2018-11-11] MEDS: TRAZODONE 100 MG TABLET PO (21:24)
--- NOTE | 2018-11-11 22:14 | PC.NURSE ---
GENTEAL Eye ointment pt administers Genteal eye ointment every night (bilaterally). Genteal is a home medication and was sent down to pharmacy. Pharmacy never returned the medication to the drawer and pt is upset, but understands.
[2018-11-11 23:30] VITALS: BP 109/61; PULSE 63; RESP 17; TEMP 36.5; O2SAT 98
[2018-11-12] MEDS: HYDROMORPHONE 0.5 MG INJ IV ×4 (03:46→20:26)
[2018-11-12 04:32] VITALS: BP 106/56; PULSE 63; RESP 16; TEMP 36.6; O2SAT 100
[2018-11-12 05:25] LABS: Add Manual Diff / Slide Review NO; Basophils Absolute Auto 0 /uL (0-100); Basophils Percent Auto 0.3 % (0-2); Eosinophils Absolute Auto 200 /uL (0-450); Eosinophils Percent Auto 3.3 % (2-4); Hematocrit 36.5 % (36-46); Hemoglobin 12.3 g/dL (12.0-16.0); Lymphocytes Absolute Auto 1400 /uL (1100-4500); Lymphocytes Percent Auto 30.1 % (25-40); Mean Corpuscular HGB Conc 33.8 % (30-36); Mean Corpuscular Hemoglobin 28.4 PG (26-34); Mean Corpuscular Volume 84.1 fL (80-100); Monocytes Absolute Auto 300 /uL (0-900); Monocytes Percent Auto 7.4 % (3-14); Neutrophils Absolute Auto 2800 /uL (1500-7000); Neutrophils Percent Auto 58.9 % (50-75); Platelet Count 216 X10^3/uL (150-400); Red Blood Cell Count 4.34 X10^6/uL (4.0-5.2); Red Cell Distribution Width 12.7 % (11.6-14.8); White Blood Cell Count 4.7 X10^3/uL (4.5-11.0)
[2018-11-12 08:00] VITALS: BP 107/65; PULSE 63; RESP 16; TEMP 36.7; O2SAT 95
[2018-11-12] MEDS: OXYCODONE IR 5 MG TABLET PO ×3 (09:40→20:26)
[2018-11-12] MEDS: ESTRADIOL 1 MG TABLET 2 MG PO (09:42)
[2018-11-12] MEDS: CLOBETASOL 0.05% OINTMENT 15 GM 1 APPLIC TOP ×2 (09:42→20:38)
[2018-11-12] MEDS: CYCLOSPORINE 1 EACH EYE-BOTH ×2 (09:43→20:35)
[2018-11-12] MEDS: buPROPion XL 150 MG TAB PO (09:48)
[2018-11-12] MEDS: SERTRALINE 50 MG TABLET 150 MG PO (09:50)
[2018-11-12] MEDS: MULTIVIT,CALC,MINS/IRON/FOLIC 1 TABLET 1 TAB PO (09:50)
[2018-11-12] MEDS: VITAMIN E 400 UNIT CAPSULE PO ×2 (09:51→20:37)
[2018-11-12] MEDS: ZAFIRLUKAST 20 MG TABLET PO (09:51)
[2018-11-12 10:10] VITALS: BP 107/65; PULSE 63; RESP 16; TEMP 36.7; O2SAT 95
--- NOTE | 2018-11-12 11:10 | PM.PN.1 ---
Subjective Date Patient Seen: 11/12/18 Time Patient Seen: 11:10 Interval history: Doing fairly well, malcolm CLD without issue but dislikes the broth. Pain still flares without IV meds. Hg normal, vitals normal. No change in abdominal exam. Pt notes she has not had a BM in 3 days. Exam Vital Signs (past 8 hours): - 11/12/18 04:32 11/12/18 08:00 Temperature 97.9 F 98.1 F Pulse Rate 63 63 Respiratory Rate 16 16 Blood Pressure 106/56 L 107/65 Pulse Oximetry 100 95 Oxygen Delivery Method Room Air Oxygen Flow Rate 0 Narrative Exam Narrative: AAO, NAD, female of healthy weight EOMI, MMM, no scleral icterus unlabored RA soft, minimal LUQ ttp, non-distended MAEW visible skin dry and intact Objective Labs Result Diagrams: 11/12/18 05:06 Labs: Laboratory Results - last 24 hr 11/12/18 05:06 WBC 4.7 RBC 4.34 Hgb 12.3 Hct 36.5 MCV 84.1 MCH 28.4 MCHC 33.8 RDW 12.7 Plt Count 216 Neut % (Auto) 58.9 Lymph % (Auto) 30.1 Talbot % (Auto) 7.4 Eos % (Auto) 3.3 Baso % (Auto) 0.3 Neut # (Auto) 2800 Lymph # (Auto) 1400 Talbot # (Auto) 300 Eos # (Auto) 200 Baso # (Auto) 0 Assessment & Plan Assessment & Plan narrative: - no change in exam, still with pain --> main limiting factor to d/c currently - Hg normal and stable, vitals normal --> no sign of increased or ongoing bleed - advance to FLD - ambulate, OOB - bowel regimen - SCDs, will start lovenox since still here Quality VTE Deep Vein Thrombosis/Pulmonary Embolism Present on Admission: No
[2018-11-12] MEDS: ENOXAPARIN 40 MG/0.4 ML SYRINGE SUBCUT (11:38)
[2018-11-12] MEDS: DOCUSATE 100 MG CAPSULE PO ×2 (12:33→20:36)
[2018-11-12] MEDS: POLYETHYLENE GLYCOL 3350 17 GM POWD.PACK PO (12:33)
[2018-11-12] MEDS: BUSPIRONE 5 MG TABLET 20 MG PO (12:34)
[2018-11-12 15:46] VITALS: BP 106/68; PULSE 67; RESP 18; TEMP 37.1; O2SAT 96
[2018-11-12] MEDS: LEVOTHYROXINE 150 MCG TABLET PO (16:09)
[2018-11-12] MEDS: TIZANIDINE 4 MG TABLET PO (20:33)
[2018-11-12] MEDS: BUSPIRONE 5 MG TABLET 10 MG PO (20:35)
[2018-11-12] MEDS: PRAVASTATIN 20 MG TABLET PO (20:36)
[2018-11-12] MEDS: MELATONIN 3 MG TABLET 6 MG PO (20:36)
[2018-11-12] MEDS: SODIUM CHLORIDE 0.9% FLUSH 10 ML IV (20:36)
[2018-11-12] MEDS: TRAZODONE 100 MG TABLET PO (20:37)
[2018-11-13] VITALS: BP 100/63; PULSE 64; RESP 18; TEMP 36.6; O2SAT 98
[2018-11-13] MEDS: OXYCODONE IR 5 MG TABLET PO ×4 (02:02→14:36)
[2018-11-13] MEDS: SODIUM CHLORIDE 0.9% FLUSH 10 ML IV ×3 (05:24→21:04)
[2018-11-13] MEDS: HYDROMORPHONE 0.5 MG INJ IV ×3 (05:24→16:52)
[2018-11-13 05:37] LABS: Add Manual Diff / Slide Review NO; Basophils Absolute Auto 0 /uL (0-100); Basophils Percent Auto 0.2 % (0-2); Eosinophils Absolute Auto 200 /uL (0-450); Eosinophils Percent Auto 3.5 % (2-4); Hematocrit 35.4 % (36-46); Hemoglobin 11.8 g/dL (12.0-16.0); Lymphocytes Absolute Auto 1700 /uL (1100-4500); Lymphocytes Percent Auto 36.4 % (25-40); Mean Corpuscular HGB Conc 33.4 % (30-36); Mean Corpuscular Hemoglobin 28.1 PG (26-34); Mean Corpuscular Volume 84.2 fL (80-100); Monocytes Absolute Auto 400 /uL (0-900); Monocytes Percent Auto 8.3 % (3-14); Neutrophils Absolute Auto 2400 /uL (1500-7000); Neutrophils Percent Auto 51.6 % (50-75); Platelet Count 208 X10^3/uL (150-400); Red Cell Distribution Width 12.5 % (11.6-14.8); White Blood Cell Count 4.6 X10^3/uL (4.5-11.0)
[2018-11-13 08:00] VITALS: BP 114/63; PULSE 73; RESP 16; TEMP 36.7; O2SAT 96
[2018-11-13] MEDS: ESTRADIOL 1 MG TABLET 2 MG PO (08:22)
[2018-11-13] MEDS: SERTRALINE 50 MG TABLET 150 MG PO (08:23)
[2018-11-13] MEDS: DOCUSATE 100 MG CAPSULE PO ×2 (08:24→21:04)
[2018-11-13] MEDS: POLYETHYLENE GLYCOL 3350 17 GM POWD.PACK PO (08:24)
[2018-11-13] MEDS: BUSPIRONE 5 MG TABLET 20 MG PO (08:24)
[2018-11-13] MEDS: STORED IN PHARMACY PO ×2 (08:27→08:42)
[2018-11-13] MEDS: buPROPion XL 150 MG TAB PO (08:27)
[2018-11-13] MEDS: ACETAMINOPHEN 325 MG TABLET 650 MG PO ×2 (08:29→21:05)
[2018-11-13] MEDS: CYCLOSPORINE 1 EACH EYE-BOTH ×2 (08:42→21:06)
[2018-11-13] MEDS: CLOBETASOL 0.05% OINTMENT 15 GM 1 APPLIC TOP ×2 (08:43→21:06)
[2018-11-13] MEDS: FLUTICASONE PROPION SALMETEROL 2 EACH INHALATION (08:44)
[2018-11-13] MEDS: VITAMIN E 400 UNIT CAPSULE PO ×2 (08:45→21:08)
[2018-11-13] MEDS: MULTIVIT,CALC,MINS/IRON/FOLIC 1 TABLET 1 TAB PO (08:45)
[2018-11-13] MEDS: ZAFIRLUKAST 20 MG TABLET PO ×2 (11:45→21:08)
--- NOTE | 2018-11-13 12:35 | CM.DPC ---
DCP Cont: Patient's status was changed to inpatient as of today, secondary to patient needing IV pain medications. Have not yet seen today's note from surgeon. Plan is still for home. Patient had not yet had a bowel movement according to note yesterday. P: DCP to continue to follow. Patient should be able to discharge home when medically stable. Joanna Tran RN/Cardroom Attendant
[2018-11-13] MEDS: MAGNESIUM HYDROXIDE 30 ML UDC PO (13:14)
--- NOTE | 2018-11-13 13:41 | PC.NURSE ---
AM NOTE - pt complaint l mif to lower quad discomfort 8 on scale 0/10 this am, bt are present, active, passing flatus, abd soft, discussed medications and given 0.5mg iv dilaudid, denies nausea or itching now, experienced occassionally during night, malcolm cl liq, added 650 mg po tylenol and later given 5mg po oxycodone, warm compress applied and later discussed pain meds, dosages and timing and pt feels pain managed and can wait for the oxycodone at the next appropriate intervall, ra 97%, p68.
--- NOTE | 2018-11-13 15:40 | PT.IIE ---
Current Diagnoses Postprocedural hematoma of the spleen following other procedure (11/10/18) Surgical History (Last Reviewed 11/11/18 @ 10:03 by Aneta Marrero MD) Status post hysterectomy (Resolved) Medical History (Last Reviewed 11/11/18 @ 10:03 by Aneta Marrero MD) Healthy adult (Acute) Anxiety (Chronic) Asthma (Chronic) Chronic migraine (Chronic) Depression (Chronic) Fibromyalgia (Chronic) Hypothyroidism (Chronic) Physical Therapy Inpatient Evaluation/Re-Eval M1 PT/OT-IP Prior Functional Status Start: 11/13/18 16:08 Freq: NEEDED Status: Active Protocol: Document 11/13/18 15:40 AB (Rec: 11/13/18 16:21 AB [id number]) Medical Review Prior Functional Status Medical History Reviewed Yes Communication able to make needs known Mobility and Gait pt stated that she is independent with all mobilities and ambulation without AD; walks the dog and drives Social History Household Members spouse Living Arrangements House Number of Floors (Floors) One Floor Number of Stairs To Enter/Railing? 1 inch step to enter Home Environment High Toilet Walk in Shower Home Equipment Grab Bars In Shower Additional Social History Comment has hiking poles but no DMEs spouse works rocket engine tester but per pt can take time off M2 PT-IP Current Condition Start: 11/13/18 16:08 Freq: NEEDED Status: Active Protocol: Document 11/13/18 15:40 AB (Rec: 11/13/18 16:21 AB [id number]) Physical Therapy Current Condition Current Condition Evaluation Date 11/13/18 Treatment Diagnosis post procedural hematoma of spleen; difficulty in walking Onset Date 11/10/18 M3 PT-IP Subjective Start: 11/13/18 16:08 Freq: NEEDED Status: Active Protocol: Document 11/13/18 15:40 AB (Rec: 11/13/18 16:21 AB [id number]) Subjective Physical Therapy Visit Type Type Initial Evaluation Visit Start Time 15:40 Visit Stop Time 16:07 Total Visit Minutes 27 Number of MACHINE PULLER Visits 0 Physical Therapy Visit Comments Patient Comments pt agreeable to move around in the room but concerned about doing too much and rupturing hematoma on spleen Therapy Pain Assessment Pain When Pain Assessed At Rest Pain Present Pain Present Pain Reported Location Left Abdomen Intensity 5 Scale Used Numeric (1 - 10) Pain Management Techniques Timing of Activity with Medications M4 PT-IP Mobility and Gait Start: 11/13/18 16:08 Freq: NEEDED Status: Active Protocol: Document 11/13/18 15:40 AB (Rec: 11/13/18 16:21 AB [id number]) PT-Bed Mobility Assessment Supine to Sit Supine to Sit Standby Assistance Sit to Supine Sit to Supine Standby Assistance Scooting Scooting to Edge of Bed Standby Assistance Scooting Up and Down in Bed Standby Assistance PT-Transfer Assessment Sit to and From Stand Sit to and from Stand Contact Guard Assistance Equipment Orthotic/Prosthetic Devices or Brace: No Comments Mobility Comments pt stated that she has been ambulating in the room with nursing without AD. pt completed sit to stand CGA. ambulated in room CGA/ TRANSIT POLICE OFFICER. pt tends to hold on to bed/ wall for support. pt agreed to use FWW tomorrow and PT to assess appropriate AD. Gait Assessment Gait Gait Assistance Required: Contact Guard Assist 1 Person Assist Distance (Feet) 30 Assistive Devices Orthotic/Prosthetic Devices or Brace: No Gait Deviations General Gait Pattern Ataxic Decreased Feet Clearance Flexed Trunk Step-to Gait Factors Limiting Gait Function Factors Limiting Gait Function Decreased Activity Tolerance Limited Range of Motion Pain Comments Gait Comments pt ambulated in room without AD but provided CGA and TRANSIT POLICE OFFICER ~ 30 ft. c/o increase pain with ambulation. PT-Balance Assessment Sitting Balance and Reactions Static Sitting Balance Ability Good Dynamic Sitting Balance Ability Good Standing Balance and Reactions Static Standing Balance Ability Good Dynamic Standing Balance Ability Fair Device Used without AD M5 PT-IP Objective Assessments Start: 11/13/18 16:08 Freq: NEEDED Status: Active Protocol: Document 11/13/18 15:40 AB (Rec: 11/13/18 16:21 AB [id number]) Orientation Orientation/Cognition Level of Alertness Alert Orientation Name Age Birthday Month Date Year Day of Week Place Situation Language Function Ability No Deficits Noted Safety Awareness Understands Safety Issues Memory Description No Deficits Noted Gross Range of Motion Lower Extremity ROM Assessment Within Functional Limits Strength Lower Extremity Strength Assessment Within Functional Limits Coordination Assessment Gross Coordination Gross Coordination WNL Sensation Assessment Sensation Gross Sensation WNL Muscle Tone Muscle Tone WNL Yes M6 PT-IP Treatment Start: 11/13/18 16:08 Freq: NEEDED Status: Active Protocol: Document 11/13/18 15:40 AB (Rec: 11/13/18 16:21 AB [id number]) Physical Therapy Treatment Education Education Provided Safety M7 PT-IP Assessment and Plan Start: 11/13/18 16:08 Freq: NEEDED Status: Active Protocol: Document 11/13/18 15:40 AB (Rec: 11/13/18 16:21 AB [id number]) PT Summary Assessment and Plan Potential Rehabilitation Potential Good Status of Condition at Evaluation Evolving Summary Impairments Pain ROM Strength Balance Coordination Sensation Tone Cognition Bed Mobility Transfers Gait Activity Tolerance Assessment Summary pt requiring CGA with mobility with pain limiting mobility. pt unable to tolerate much activity due to pain. pt plans to go home and spouse can assist if needed. PT will assess mobility using AD next tx session. will continue to monitor progress for safe d/c plan. Goals Bed Mobility Goal Independent Transfer Goal Independent Front Wheeled Walker Gait Goal Independent Front Wheel Walker Gait Distance 100 Other Goals improve ambulation without AD ~ 250 ft independent up/down 1 step without rail SBA Days to Meet Goals 10 Frequency of Treatment Frequency Of Treatment Once a Day Treatment Plan Physical Therapy Treatment Plan Bed Mobility Training Transfer Training Gait Training Therapeutic Exercise Balance Retraining Discharge Planning Hot or Cold Pack Neuromuscular Re-ed Other Recommendations and Next Treatment ambulation using FWW/ Focus appropriate AD if needed Recommendations To Nursing Amount of Assist Needed 1 Person Assist Discharge Recommendations PT Discharge Recommendations Home with Assistance Equipment Needed for Home Before FWW if not safe without AD Discharge
--- NOTE | 2018-11-13 15:42 | CM.DPC ---
DCP Cont: Had spent some time in patient's room listening to her concerns. Prior to this cyber intel planner seeing patient, she had been speaking to Armida, admin specialist in care management regarding the form that she signed. She wanted to make sure that her hospital stay was covered. Patient has had some concerns regarding her situation. She stated that this all started in June, for external hemorrhoids. She had been here for this treatment, and was recommended that she have colonoscopy. She stated that after she had her colonoscopy, she developed severe left sided pain like she never had before. She ended up coming back to the ER for pain, and went home with some pain meds. She had experienced more pain on the week-end, and ended calling the 24 hour tri-care nurse line who suggested she go back to the ER. She went to [facility], and stated, was there about 6 hours, and had a CT scan. She stated that they went over the CT scan, and stated that she had a splenic hematoma. She stated, was concerned that this happened during the colonoscopy. The surgeon at [facility] suggest that she come back here to this hospital since the procedure was done here. She came over by ambulance and was a direct admit. Patient has voiced concerns that she continues to have pain, and feels that they should do another CT scan so they can visualize my spleen. She has voiced these concerns, and feels that she should talk to someone about this, for she has been doing a lot of research. Went ahead and originally spoke to Montse, nursing alteration workroom supervisor who suggested that Dr. Santos can come back and talk to her. Let patient know this, and she declined to have him come back. Went ahead and discussed with Charlene, care records management director, and suggest calling PATRICIA De Jesus. Left him a message to call this welfare case worker back, but did not leave detailed information. Charlene gave patient number of compliance hotline to call with concerns. P: DCP to continue to be available for patient, and any resources that she may need. Joanna Tran, RN/Supervisor Paper Testing
--- NOTE | 2018-11-13 17:26 | P.PN_ITS ---
Subjective Date Patient Seen: 11/13/18 Time Patient Seen: 11:00 Interval history: The patient is a woman who apparently had a small splenic injury after colonoscopy. She is complaining of severe pain in a very discrete area in her left upper quadrant. This pain doubles her over and causes her a times to be tearful. Has not had a bowel movement. Exam Vital Signs (past 8 hours): Oxygen Delivery Method Room Air Oxygen Flow Rate 0 Narrative Exam Narrative: Lungs are clear to auscultation. Good air movement. Heart regular rate and rhythm without murmur gallop. Abdomen is soft. No guarding. Mild tenderness in his crease area of the left upper quadrant. Objective Labs Result Diagrams: 11/13/18 05:04 Labs: Laboratory Results - last 24 hr 11/13/18 05:04 WBC 4.6 RBC 4.20 Hgb 11.8 L Hct 35.4 L MCV 84.2 MCH 28.1 MCHC 33.4 RDW 12.5 Plt Count 208 Neut % (Auto) 51.6 Lymph % (Auto) 36.4 [place] % (Auto) 8.3 Eos % (Auto) 3.5 Baso % (Auto) 0.2 Neut # (Auto) 2400 Lymph # (Auto) 1700 [place] # (Auto) 400 Eos # (Auto) 200 Baso # (Auto) 0 Assessment & Plan Assessment & Plan narrative: I reviewed the patient's CT scans from here and a day later from would be both of which are in our system. The small discrete area of concern seems to have gotten smaller after 1 day. We are now week out from her colonoscopy. The degree of this patient's pain is surprising given the findings on CT scan. Not sure how to correlate that. I talked to the patient today about ambulation and her pain management. I told her that frankly I was concerned about her developing addiction to narcotics if we continue on her present course. She told me that the pain that she is having had been relieved with the IV Dilaudid but that is no longer working as well. I am hesitant to give her anything would have an affect on her platelets but I think I am re aching a point where that might be necessary. She has not received DVT prophylaxis for the same reason. I might consider repeating her CT scan to see she is bled but again but I will certainly get CBC to see if there is any change in her matter crit to explain the symptoms. She was in severe pain, however, when the CTs were done so this may does reflect her pain perception. In any event, I will have Physical therapy see her and get her mobilized. Will try switching her pain meds to a higher dose of oral medication to see if we can get her off the IV meds. Not sure if that is going to work given the conversation that I had with her. Quality VTE Deep Vein Thrombosis/Pulmonary Embolism Present on Admission: No
[2018-11-13] MEDS: OXYCODONE IR 10 MG TABLET PO ×2 (18:57→22:55)
[2018-11-13] MEDS: PRAVASTATIN 20 MG TABLET PO (21:04)
[2018-11-13] MEDS: MELATONIN 3 MG TABLET 6 MG PO (21:05)
[2018-11-13] MEDS: BUSPIRONE 5 MG TABLET 10 MG PO (21:05)
[2018-11-13] MEDS: TRAZODONE 100 MG TABLET PO (21:05)
[2018-11-13] MEDS: TIZANIDINE 4 MG TABLET PO (21:05)
[2018-11-13 21:49] VITALS: TEMP 36.6
[2018-11-13 22:36] VITALS: BP 125/68; PULSE 81; RESP 16; O2SAT 100
[2018-11-13 23:10] VITALS: BP 104/70; PULSE 68; RESP 16; TEMP 36.6; O2SAT 94
[2018-11-14] MEDS: OXYCODONE IR 10 MG TABLET PO ×5 (02:55→22:42)
--- NOTE | 2018-11-14 03:12 | PC.NURSE ---
Addendum entered by Zohra Hidalgo R.N. 11/14/18 07:16: Found to be incontinent of bowel after getting up to urinate. Unsteady on feet so assisted to bathroom. Medicated with Oxycodone per patient request as wants to maintain pain control but discussed during day taking pain meds only when needed. Original Note: Patient is alert and oriented. Breath sounds CTA with RA sat of 94%. HRR. Denies nausea. Still having 5/10, sharp pain in LUQ of abdomen just below ribs; tender with palpation; medicated with Oxycodone. BT present and states she had a BM yesterday. Denies dysuria, frequency or urgency and is continent. Independent with bed mobility. States she still feels weak with ambulation so instructed to call for SBA when out of bed; verbalizes understanding. Declines SCD's at night as unable to sleep with them on. Fall risk score is low. Noted red, firm area on left anterior forearm from IV infiltration on previous shift but area is smaller than when viewed at shift change.
[2018-11-14 05:43] LABS: Add Manual Diff / Slide Review NO; Basophils Absolute Auto 0 /uL (0-100); Basophils Percent Auto 0.4 % (0-2); Eosinophils Absolute Auto 100 /uL (0-450); Eosinophils Percent Auto 2.8 % (2-4); Hematocrit 35.2 % (36-46); Hemoglobin 11.8 g/dL (12.0-16.0); Lymphocytes Absolute Auto 1500 /uL (1100-4500); Lymphocytes Percent Auto 32.9 % (25-40); Mean Corpuscular HGB Conc 33.5 % (30-36); Mean Corpuscular Hemoglobin 28.2 PG (26-34); Mean Corpuscular Volume 84.2 fL (80-100); Monocytes Absolute Auto 400 /uL (0-900); Monocytes Percent Auto 8.4 % (3-14); Neutrophils Absolute Auto 2500 /uL (1500-7000); Neutrophils Percent Auto 55.5 % (50-75); Platelet Count 223 X10^3/uL (150-400); Red Blood Cell Count 4.19 X10^6/uL (4.0-5.2); Red Cell Distribution Width 12.8 % (11.6-14.8); White Blood Cell Count 4.4 X10^3/uL (4.5-11.0)
[2018-11-14] MEDS: LEVOTHYROXINE 150 MCG TABLET PO (06:52)
[2018-11-14 08:00] VITALS: BP 126/74; PULSE 66; RESP 16; TEMP 36.3; O2SAT 100
--- NOTE | 2018-11-14 09:07 | CM.DPC ---
Late Entry - appox 3 pm on 11/13/18. This patient spoke to Anna HAYDEN about concerns she had regarding her care. Anna expressed to me her uncertainty about what resources to offer her, so that she can responsibly express her concerns to others. I went to patient's room at approx 4 pm. I explained that it was best that she spoke about those concerns with her MD, but if she felt she still needed to communicate about her care she could call compliance hotline. I gave her a post it with the number.
[2018-11-14] MEDS: BUSPIRONE 5 MG TABLET 20 MG PO (09:24)
[2018-11-14] MEDS: VITAMIN E 400 UNIT CAPSULE PO ×2 (09:27→21:51)
[2018-11-14] MEDS: SERTRALINE 50 MG TABLET 150 MG PO (09:27)
[2018-11-14] MEDS: CLOBETASOL 0.05% OINTMENT 15 GM 1 APPLIC TOP ×2 (09:28→21:48)
[2018-11-14] MEDS: ESTRADIOL 1 MG TABLET 2 MG PO (09:29)
[2018-11-14] MEDS: buPROPion XL 150 MG TAB PO (09:32)
[2018-11-14] MEDS: ACETAMINOPHEN 325 MG TABLET 650 MG PO ×2 (09:32→21:49)
[2018-11-14] MEDS: CYCLOSPORINE 1 EACH EYE-BOTH ×2 (09:45→21:48)
[2018-11-14] MEDS: SODIUM CHLORIDE 0.9% FLUSH 10 ML IV ×2 (09:47→21:50)
[2018-11-14] MEDS: MULTIVIT,CALC,MINS/IRON/FOLIC 1 TABLET 1 TAB PO (09:47)
--- NOTE | 2018-11-14 14:18 | DI.CT.S_ITS ---
PROCEDURE: CT ABDOMEN PELVIS W CON INDICATIONS: f/u for any evidence of splenic injury or any significant change since last CT, in this patient with pain after colonoscopy TECHNIQUE: After the administration of oral and intravenous contrast, 5 mm thick sections acquired from the diaphragms to the symphysis. 5 mm thick coronal and sagittal reformats were performed. For radiation dose reduction, the following was used: automated exposure control, adjustment of mA and/or kV according to patient size. COMPARISON: [facility], CR, XR ACUTE ABDOMEN SERIES, 11/06/2018, 12:37. [facility], CT, CT ABDOMEN PELVIS W CON, 11/09/2018, 16:58. [facility], RG, CT ABDOMEN/PELVIS WITH CONTRAST, 11/10/2018, 20:37. FINDINGS: Image quality: Excellent. ABDOMEN: Lung bases: Lung bases are clear. Heart size is normal. Solid organs: Liver is normal in size and enhancement. Gallbladder contains one 2 x 3 mm calculus. Biliary system is non-dilated. Pancreas enhances normally. Spleen is normal in size and enhancement. No adrenal nodules. Kidneys are normal in size and enhancement, without hydronephrosis. Peritoneum and bowel: Stomach, small bowel, and colon loops are normal in caliber and wall thickness. No free air. There is a small increase in the amount of high density free fluid deep within the pelvis at the right margin of the peritoneal reflection, and also at the splenic flexure area of the colon. No active extravasation at time of current CT scanning is present. Nodes and vessels: No retroperitoneal or mesenteric adenopathy. Aorta and inferior vena cava are normal in caliber. Miscellaneous: No ventral hernias. PELVIS: Genitourinary: Bladder wall thickness is normal. Miscellaneous: No inguinal hernias or adenopathy. Bones: No suspicious bony lesions. No vertebral body compression fractures. IMPRESSION: The findings discussed above both at the right margin of the peritoneal reflection deep within the cul-de-sac and also at the splenic flexure of the colon suggests a small amount of hemoperitoneum has increased slightly from the original CT scan performed 11/09/18. The density of the fluid measures approximately 56 Hounsfield units, but there is no suspicion for active bleeding at time of the scanning. No splenic laceration is present. No free air is found. Dictated by: Arvin Horowitz M.D. on 11/14/2018 at 17:13 Approved by: Arvin Horowitz M.D. on 11/14/2018 at 17:19
--- NOTE | 2018-11-14 14:23 | PM.PN.1 ---
Subjective Date Patient Seen: 11/14/18 Time Patient Seen: 14:23 Interval history: The patient is a woman who had a colonoscopy last Monday. We are now 9 days out from that. She apparently suffered a small splenic injury at that time. CT scan done several days ago and 1 following it showed a small injury with some improvement between the 2 scans. Patient's nurse reports improvement in her pain control with change in her meds. She complains today of diarrhea and persistent pain. she was given milk of magnesia as needed constipation and was begun on daily MiraLax yesterday. Exam Vital Signs (past 8 hours): - 11/14/18 08:00 Temperature 97.3 F L Pulse Rate 66 Respiratory Rate 16 Blood Pressure 126/74 Pulse Oximetry 100 Oxygen Delivery Method Room Air Oxygen Flow Rate 0 Narrative Exam Narrative: Lungs are clear to auscultation. Good respiratory effort. Heart regular rate and rhythm without murmur gallop. Abdomen is scaphoid soft. No guarding. Patient complains of pain with palpation of the left lower and left upper quadrant now. There is no facial reaction. Objective Labs Result Diagrams: 11/14/18 05:21 Labs: Laboratory Results - last 24 hr 11/14/18 05:21 WBC 4.4 L RBC 4.19 Hgb 11.8 L Hct 35.2 L MCV 84.2 MCH 28.2 MCHC 33.5 RDW 12.8 Plt Count 223 Neut % (Auto) 55.5 Lymph % (Auto) 32.9 [place] % (Auto) 8.4 Eos % (Auto) 2.8 Baso % (Auto) 0.4 Neut # (Auto) 2500 Lymph # (Auto) 1500 [place] # (Auto) 400 Eos # (Auto) 100 Baso # (Auto) 0 Assessment & Plan Assessment & Plan narrative: Discussed with patient my plans to potentially discharge her tomorrow. She said that she is not comfortable with that without a repeat CT scan which I discouraged. She already had CT scan several days after the injury which should have shown anything of significance by then. This showed a very minor injury. I explained to her that her pain is out of proportion to the injury we see. However it is what it is. She already had 2 [address] scans and according to the radiologist they showed interval improvement even though they were only a day apart. I am not sure that a repeat CT scan is absolutely necessary but she is insistent and is understanding that there will be radiation and kidney risks. She wishes to do it none the less. I will repeat her Chem 7 BUN creatinine specifically and if her renal function is normal will proceed as she insist. Quality VTE Deep Vein Thrombosis/Pulmonary Embolism Present on Admission: No
[2018-11-14 15:21] LABS: BUN Creatinine Ratio 16.7 (6-22); Blood Urea Nitrogen 10 mg/dL (7-17); Calcium 9.4 mg/dL (8.4-10.2); Carbon Dioxide 29 mmol/L (22-32); Chloride 102 mmol/L (98-107); Estimated Glomerular Filt Rate > 60.0 mL/min (>60); Glucose 93 mg/dL (80-110); HEMOLYSIS < 15 (0-50); Sodium 140 mmol/L (137-145)
[2018-11-14] MEDS: ZAFIRLUKAST 20 MG TABLET PO ×2 (15:42→21:51)
--- NOTE | 2018-11-14 15:54 | PT.IPTN ---
Current Diagnoses Postprocedural hematoma of the spleen following other procedure (11/10/18) Physical Therapy Treatment Note M2 PT-IP Current Condition Start: 11/13/18 16:08 Freq: NEEDED Status: Active Protocol: Document 11/13/18 15:40 AB (Rec: 11/13/18 16:21 AB [id number]) Physical Therapy Current Condition Current Condition Evaluation Date 11/13/18 Treatment Diagnosis post procedural hematoma of spleen; difficulty in walking Onset Date 11/10/18 M3 PT-IP Subjective Start: 11/13/18 16:08 Freq: NEEDED Status: Active Protocol: Document 11/14/18 15:53 LJ (Rec: 11/14/18 15:54 LJ [id number]) Subjective Physical Therapy Visit Type Type Patient Refusal Notes States she has very bad diarrhea and has been getting up all day. Says she can hardly move without having to go to the bathroom again. M4 PT-IP Mobility and Gait Start: 11/13/18 16:08 Freq: NEEDED Status: Active Protocol: Document 11/13/18 15:40 AB (Rec: 11/13/18 16:21 AB [id number]) PT-Bed Mobility Assessment Supine to Sit Supine to Sit Standby Assistance Sit to Supine Sit to Supine Standby Assistance Scooting Scooting to Edge of Bed Standby Assistance Scooting Up and Down in Bed Standby Assistance PT-Transfer Assessment Sit to and From Stand Sit to and from Stand Contact Guard Assistance Equipment Orthotic/Prosthetic Devices or Brace: No Comments Mobility Comments pt stated that she has been ambulating in the room with nursing without AD. pt completed sit to stand CGA. ambulated in room CGA/ SPOT CHECKER. pt tends to hold on to bed/ wall for support. pt agreed to use FWW tomorrow and PT to assess appropriate AD. Gait Assessment Gait Gait Assistance Required: Contact Guard Assist 1 Person Assist Distance (Feet) 30 Assistive Devices Orthotic/Prosthetic Devices or Brace: No Gait Deviations General Gait Pattern Ataxic Decreased Feet Clearance Flexed Trunk Step-to Gait Factors Limiting Gait Function Factors Limiting Gait Function Decreased Activity Tolerance Limited Range of Motion Pain Comments Gait Comments pt ambulated in room without AD but provided CGA and SPOT CHECKER ~ 30 ft. c/o increase pain with ambulation. PT-Balance Assessment Sitting Balance and Reactions Static Sitting Balance Ability Good Dynamic Sitting Balance Ability Good Standing Balance and Reactions Static Standing Balance Ability Good Dynamic Standing Balance Ability Fair Device Used without AD M5 PT-IP Objective Assessments Start: 11/13/18 16:08 Freq: NEEDED Status: Active Protocol: Document 11/13/18 15:40 AB (Rec: 11/13/18 16:21 AB [id number]) Orientation Orientation/Cognition Level of Alertness Alert Orientation Name Age Birthday Month Date Year Day of Week Place Situation Language Function Ability No Deficits Noted Safety Awareness Understands Safety Issues Memory Description No Deficits Noted Gross Range of Motion Lower Extremity ROM Assessment Within Functional Limits Strength Lower Extremity Strength Assessment Within Functional Limits Coordination Assessment Gross Coordination Gross Coordination WNL Sensation Assessment Sensation Gross Sensation WNL Muscle Tone Muscle Tone WNL Yes M6 PT-IP Treatment Start: 11/13/18 16:08 Freq: NEEDED Status: Active Protocol: Document 11/13/18 15:40 AB (Rec: 11/13/18 16:21 AB [id number]) Physical Therapy Treatment Education Education Provided Safety M7 PT-IP Assessment and Plan Start: 11/13/18 16:08 Freq: NEEDED Status: Active Protocol: Document 11/13/18 15:40 AB (Rec: 11/13/18 16:21 AB [id number]) PT Summary Assessment and Plan Potential Rehabilitation Potential Good Status of Condition at Evaluation Evolving Summary Impairments Pain ROM Strength Balance Coordination Sensation Tone Cognition Bed Mobility Transfers Gait Activity Tolerance Assessment Summary pt requiring CGA with mobility with pain limiting mobility. pt unable to tolerate much activity due to pain. pt plans to go home and spouse can assist if needed. PT will assess mobility using AD next tx session. will continue to monitor progress for safe d/c plan. Goals Bed Mobility Goal Independent Transfer Goal Independent Front Wheeled Walker Gait Goal Independent Front Wheel Walker Gait Distance 100 Other Goals improve ambulation without AD ~ 250 ft independent up/down 1 step without rail SBA Days to Meet Goals 10 Frequency of Treatment Frequency Of Treatment Once a Day Treatment Plan Physical Therapy Treatment Plan Bed Mobility Training Transfer Training Gait Training Therapeutic Exercise Balance Retraining Discharge Planning Hot or Cold Pack Neuromuscular Re-ed Other Recommendations and Next Treatment ambulation using FWW/ Focus appropriate AD if needed Recommendations To Nursing Amount of Assist Needed 1 Person Assist Discharge Recommendations PT Discharge Recommendations Home with Assistance Equipment Needed for Home Before FWW if not safe without AD Discharge
[2018-11-14 15:59] VITALS: BP 115/63; PULSE 64; RESP 18; TEMP 36.8; O2SAT 98
[2018-11-14] MEDS: FLUTICASONE PROPION SALMETEROL 2 EACH INHALATION (18:05)
[2018-11-14 18:08] VITALS: PULSE 64; RESP 16; O2SAT 99
[2018-11-14 19:25] VITALS: BP 111/65; PULSE 78; RESP 18; TEMP 36.6; O2SAT 100
[2018-11-14] MEDS: MELATONIN 3 MG TABLET 6 MG PO (21:48)
[2018-11-14] MEDS: TRAZODONE 100 MG TABLET PO (21:48)
[2018-11-14] MEDS: PRAVASTATIN 20 MG TABLET PO (21:49)
[2018-11-14] MEDS: BUSPIRONE 5 MG TABLET 10 MG PO (21:50)
[2018-11-14] MEDS: TIZANIDINE 4 MG TABLET PO (21:51)
[2018-11-14 23:30] VITALS: BP 99/57; PULSE 68; RESP 15; TEMP 36.6; O2SAT 96
[2018-11-15] MEDS: LEVOTHYROXINE 150 MCG TABLET PO (05:58)
[2018-11-15] MEDS: OXYCODONE IR 10 MG TABLET PO ×2 (06:01→10:36)
[2018-11-15] MEDS: FLUTICASONE PROPION SALMETEROL 2 EACH INHALATION (07:24)
[2018-11-15 07:28] VITALS: PULSE 65; RESP 16; O2SAT 97
--- NOTE | 2018-11-15 08:29 | P.DS_ITS ---
History of Present Illness Date Patient Seen: 11/15/18 Time Patient Seen: 08:28 Chief complaint: Left side abdominal PX Discharge Providers Date of admission: 11/10/18 23:50 Discharge Date: 11/15/18 Consults: 11/11/18 10:10 Consult to Discharge Planning Routine Comment: 11/13/18 13:02 Consult to Physical Therapy Evaluate & Treat Comment: assist/encourage ambulation Physician Instructions: Evaluate and Treat Discharge provider: Tan Carrizales MD Summary Discharge Diagnosis: Severe acute left abdominal pain probably secondary to small splenic laceration Splenic laceration grade 1 with slight bleeding. Fibromyalgia chronic History of migraines Anxiety chronic treated with medication Depression chronic treated with medication Hypothyroidism chronic treated with medication Asthma chronic treated with medication Hospital Course: Patient was admitted and given narcotics for pain control. She required an increase in the dosing but ultimately her pain was better controlled with the pain medicine. She had some constipation which was relieved with milk of magnesia. Because of concern of possible delayed bleeding she was treated for DVT prophylaxis with mechanical measures only. She was encouraged to walk and required a PT consult to mobilize her. She tolerated p.o. without diffi culty. Exam Vital Signs (past 8 hours): - 11/15/18 07:28 Pulse Rate 65 Respiratory Rate 16 Pulse Oximetry 97 Fraction of Inspired Oxygen 21 Oxygen Delivery Method Room Air Oxygen Flow Rate 0 Narrative Exam Narrative: No apparent distress. Complains of left abdominal pain which has been persistent. Lungs are clear. Good effort. Heart regular rate and rhythm. Abdomen soft without guarding. Mild tenderness left abdomen. Objective Imaging CT scan - abdomen: My impression: Slight increase in fluid from prior scans. These were done approximately 4 days ago. The increase is insignificant clinically. Measuring the volume of blood at the tip of the spleen it probably represents 10 cc over an 8 day period. Labs Result Diagrams: 11/14/18 05:21 11/14/18 14:55 Labs: Laboratory Results - last 24 hr 11/14/18 14:55 Sodium 140 Potassium 4.0 Chloride 102 Carbon Dioxide 29 BUN 10 Creatinine 0.60 Estimated GFR > 60.0 BUN/Creatinine Ratio 16.7 Glucose 93 Calcium 9.4 Discharge Plan Discharge Plan Patient Disposition: Home Discharge Med Rec/Prescriptions Prescriptions: New oxycodone 5 mg tablet 10 mg PO Q4-6H PRN (Reason: pain) Qty: 40 RF: 0 gabapentin 300 mg capsule 300 mg PO BID Qty: 30 RF: 0 lidocaine [Lidoderm] 5 % adhesive patch,medicated 1 patch TOP DAILY Qty: 1 RF: 0 Continued Advair HFA 230-21 mcg/actuation HFA aerosol inhaler 2 puff INHALATION BID RF: 0 zafirlukast 20 mg tablet 20 mg PO Q12H RF: 0 epinephrine [EpiPen] 0.3 mg/0.3 mL auto-injector 0.3 ml IM ONCE PRN (Reason: anaphylaxis) RF: 0 fluorometholone 0.1 % drops,suspension See Rx Instructions .ROUTE .COMPLEX PRN (Reason: burning, redness, irritat ion) RF: 0 bupropion HCl 150 mg tablet extended release 24 hr 150 mg PO QAM RF: 0 pravastatin 20 mg tablet 20 mg PO DAILY RF: 0 estradiol 2 mg tablet 2 mg PO DAILY RF: 0 beta carotene 25,000 unit Capsule 25,000 unit PO QPM RF: 0 flaxseed oil 1,000 mg Capsule 1,200 mg PO BID RF: 0 ascorbic acid (vitamin C) 500 mg Tablet 500 mg PO DAILY RF: 0 vitamin E 400 unit Capsule 400 unit PO BID RF: 0 Century Mature 0.4-300-250 mg-mcg-mcg Tablet 1 tab PO DAILY RF: 0 melatonin 5 mg Tablet 5 mg PO BEDTIME RF: 0 rizatriptan 10 mg tablet 10 mg PO PRN PRN (Reason: Migraine Headache) RF: 0 clobetasol 0.05 % ointment 1 applic topical BID RF: 0 tizanidine 2 mg tablet 4 mg PO QPM RF: 0 sertraline 100 mg tablet 150 mg PO DAILY RF: 0 tramadol 50 mg tablet 50 - 100 mg PO TID PRN (Reason: Pain (Scale Score 7-10)) RF: 0 ondansetron 8 mg tablet,disintegrating 8 mg PO BID PRN (Reason: nausea w/migraine medication) RF: 0 trazodone 100 mg tablet 100 mg PO QPM RF: 0 levothyroxine 150 mcg tablet 150 mcg PO QPM RF: 0 albuterol sulfate 90 mcg/actuation HFA aerosol inhaler 1 puff inhalation BID-TID RF: 0 buspirone 10 mg tablet 10 mg PO BID RF: 0 Restasis 0.05 % Dropperette 1 drp ophthalmic (eye) BID RF: 0 Provider Discharge Instructions Diet: Diet as Tolerated Activity: As tolerated Visit Report/Discharge Packet Instructions: DI for Constipation, DI for Hematoma (Bruise), DI for Acute Abdomen, Oxycodone Visit Report Forms: Stroke Signs & Symptoms Discharge Data Attending Provider: Aneta Marrero Admit Date/Time: 11/10/18 23:50 Discharges patient from system. Discharge Date/Time: 11/15/18 12:17 Quality VTE Deep Vein Thrombosis/Pulmonary Embolism Present on Admission: No
[2018-11-15 08:30] VITALS: BP 117/74; PULSE 70; RESP 16; TEMP 36.4; O2SAT 100
--- NOTE | 2018-11-15 08:42 | CM.DPC ---
Addendum entered by Debra Johnson LPN 11/15/18 10:41: Met with pt and her . She had just been given a d/c order and was preparing to go. She requested her Medical Records. Have spoken with RN coordinator Nancy and with [facility] Eveline Jordan re the process. Pt now has the records provided by the [facility] after signing appropriate documents and being directed by Eveline to follow up for other requested documents in Medical Records. Pt and her will do this today. Pt says she will followup ARCHIE with her PCP and with Evan. Hopes to get an appt with her PCP as soon as possible. She states she has no followup appt with Dr. Carrizales. She expresses thankfulness for the care of the nursing and ancillary staff during her stay. Original Note: DCP: continued: case received, EMR reviewed and was updated re this case yesterday by agronomy location manager Charlene and the information she gave to pt re the national compliance hotline. Received a call just now from Annmarie De Jesus/ compliance office in followup to ROSA Marshall's phone message. He noted that this issue falls more directly to the Quality and Risk dept of and that he would follow up with Charlene for further discussion. He agreed to call this DCPlanner back if he had any further recommendations to offer pt. P: check in with pt and follow for her d/c issues and options.
[2018-11-15] MEDS: ACETAMINOPHEN 325 MG TABLET 650 MG PO (08:49)
[2018-11-15] MEDS: VITAMIN E 400 UNIT CAPSULE PO (08:51)
[2018-11-15] MEDS: SERTRALINE 50 MG TABLET 150 MG PO (08:51)
[2018-11-15] MEDS: CLOBETASOL 0.05% OINTMENT 15 GM 1 APPLIC TOP (08:52)
[2018-11-15] MEDS: CYCLOSPORINE 1 EACH EYE-BOTH (08:53)
[2018-11-15] MEDS: ZAFIRLUKAST 20 MG TABLET PO (08:53)
[2018-11-15] MEDS: buPROPion XL 150 MG TAB PO (08:54)
[2018-11-15] MEDS: BUSPIRONE 5 MG TABLET 20 MG PO (08:54)
[2018-11-15] MEDS: SODIUM CHLORIDE 0.9% FLUSH 10 ML IV (08:55)
[2018-11-15] MEDS: ESTRADIOL 1 MG TABLET 2 MG PO (08:55)
[2018-11-15] MEDS: MULTIVIT,CALC,MINS/IRON/FOLIC 1 TABLET 1 TAB PO (08:56)
[2018-11-15] MEDS: LIDOCAINE PATCH 1 EACH ADH..PATCH TOP (11:03)
--- NOTE | 2018-11-15 12:18 | PT.IPTN ---
Current Diagnoses Postprocedural hematoma of the spleen following other procedure (11/10/18) Left upper quadrant pain (11/10/18) Physical Therapy Treatment Note M2 PT-IP Current Condition Start: 11/13/18 16:08 Freq: NEEDED Status: Discharge Protocol: Document 11/13/18 15:40 AB (Rec: 11/13/18 16:21 AB [id number]) Physical Therapy Current Condition Current Condition Evaluation Date 11/13/18 Treatment Diagnosis post procedural hematoma of spleen; difficulty in walking Onset Date 11/10/18 M3 PT-IP Subjective Start: 11/13/18 16:08 Freq: NEEDED Status: Discharge Protocol: Document 11/15/18 11:40 CLB (Rec: 11/15/18 12:18 CLB [id number]) Subjective Physical Therapy Visit Type Type Patient Refusal Notes Pt refused stating she has been up today and is ready for d/c. Pt also stated she didn' t have stairs at home just threshold at front door, pt refused stair training.
== END 2018-11-15 12:17 | disposition home or self-care (01) | DRG 920 ==
PROVIDERS: Admitting Provider Specialist; Visit Provider Surgery
DX: K91.870 Postprocedural hematoma of a digestive system organ or structure following a digestive system procedure (principal); S36.030A Superficial (capsular) laceration of spleen, initial encounter; G89.18 Other acute postprocedural pain; F41.9 Anxiety disorder, unspecified; F32.9 Major depressive disorder, single episode, unspecified; E03.9 Hypothyroidism, unspecified; M79.7 Fibromyalgia; Z87.891 Personal history of nicotine dependence
CPT/HCPCS: 36415; 74177; 80048; 85025; 94640; 94760; 97162; G0379; J1170; J1650; Q9967

== ENCOUNTER → 2022-05-29 13:46 | Outpatient (CLI) | payer OTHER, SELFPAY ==
--- NOTE | 2022-05-29 13:48 | DI.MRI.S_ITS ---
PROCEDURE: MR LUMBAR SPINE WO CON INDICATIONS: LOW BACK PAIN TECHNIQUE: Noncontrast sagittal T1 spin echo and T2 fast echo, sagittal STIR, and T2 fast spin echo through the lumbar spine. In cases with scoliosis, additional coronal T2 fast spin echo may be performed. COMPARISON: [facility], CR, XR LUMBAR SPINE WITH OBLIQUES PLUS FLEXION EXTENSION, 05/10/2022, 13:27. FINDINGS: Image quality: Excellent. Alignment and Curvature: There is normal bony alignment. Bone Marrow: Marrow is of normal overall signal. No acute vertebral body compression fractures. Spinal Cord: Conus medullaris terminates at the L1 level. Visualized cord demonstrates normal signal and size. Paraspinous Soft Tissues: No paravertebral masses. T12-L1: Disc height loss, anterior osteophytes. Disc bulge. Facet hypertrophy. No canal stenosis or foraminal stenosis. L1-L2: Mild facet hypertrophy. No canal stenosis or foraminal stenosis. L2-L3: Mild facet hypertrophy. Minimal disc bulge. No canal stenosis or foraminal stenosis. L3-L4: Mild disc bulge. Mild facet hypertrophy. No canal stenosis or foraminal stenosis. L4-L5: Mild disc bulge. Facet hypertrophy. No canal stenosis or foraminal stenosis. L5-S1: Facet hypertrophy. No canal stenosis or foraminal stenosis. IMPRESSION: 1. No canal stenosis or foraminal stenosis. 2. Multilevel facet arthropathy. Dictated by: Gen Maddox M.D. on 05/30/2022 at 9:25 Approved by: Gen Maddox M.D. on 05/30/2022 at 9:30
== END ==
PROVIDERS: PCP Internal Medicine; Referring Provider Physical Medicine & Rehabilitation Pain Medicine; Visit Provider Physical Medicine & Rehabilitation Pain Medicine
DX: M47.816 Spondylosis without myelopathy or radiculopathy, lumbar region (principal); M47.817 Spondylosis without myelopathy or radiculopathy, lumbosacral region; M54.50 Low back pain, unspecified
CPT/HCPCS: 72148

== ENCOUNTER → 2023-05-28 13:28 | Outpatient (CLI) | payer MEDICARE, OTHER, SELFPAY ==
--- NOTE | 2023-05-28 13:33 | DI.CT.S_ITS ---
PROCEDURE: CT SINUS SCREEN WO CON INDICATIONS: Chronic pansinusitis TECHNIQUE: Noncontrast 3.0 mm axial images acquired from the frontal sinuses to the mid-sella, with coronal and sagittal reformats. For radiation dose reduction, the following was used: automated exposure control, adjustment of mA and/or kV according to patient size. COMPARISON: None. FINDINGS: Image quality: Excellent. Maxillary Sinuses: No bony remodeling or destruction. Sinuses are clear. Ethmoid Air Cells: No bony remodeling or destruction. Sinuses are clear. Prior ethmoidectomy and middle meatal on trusting me bilaterally. Sphenoid Sinuses: No bony remodeling or destruction. Sinuses are clear. Frontal Sinuses: No bony remodeling or destruction. Sinuses are clear. Ostiomeatal Complexes: Postsurgical changes of bilateral maxillary antrostomies. Ostiomeatal complexes are widely patent. No Antonio cells. Miscellaneous: Visualized intra-orbital contents are normal. No yvrose bullosa or paradoxical turbinate curvature. No nasal septal deviation. IMPRESSION: 1. Postsurgical sequela of prior sinus surgery. The ostiomeatal complexes are widely patent. 2. No acute or chronic sinusitis. Dictated by: Ernie Henriquez M.D. on 05/28/2023 at 15:35 Approved by: Ernie Henriquez M.D. on 05/28/2023 at 15:44
== END ==
PROVIDERS: PCP Internal Medicine; Referring Provider Otolaryngology; Visit Provider Otolaryngology
DX: R51.9 Headache, unspecified (principal); J32.4 Chronic pansinusitis; Z98.890 Other specified postprocedural states
CPT/HCPCS: 70486